=== PATIENT | female | born 1935 | race Caucasian/White ===

== ENCOUNTER 2019-12-13 11:36 | Emergency (ER) | payer MEDICARE, OTHER, SELFPAY ==
--- NOTE | ~2019-12-13 | XR_ITS ---
EXAMINATION: XR chest 2V DATE: 12/13/2019 13:03 INDICATION: Chest pain and shortness of breath TECHNIQUE: frontal and lateral views of the chest were obtained. COMPARISON: None FINDINGS: The lungs are clear with no focal airspace opacities, pulmonary edema, pleural effusion or pneumothor ax. The cardiomediastinal silhouette is normal. Moderate S-shaped thoracolumbar scoliosis with modera te to severe spondylosis. Advanced right glenohumeral osteoarthritis. IMPRESSION: 1. No acute cardiopulmonary disease. Reviewed, dictated and finalized at location B.
[2019-12-13 11:36] VITALS: BP 142/77; PULSE 103; RESP 26; TEMP 37.1; O2SAT 94
--- NOTE | 2019-12-13 11:54 | ECG_ITS ---
Measurements Intervals [place] Rate: 103 P: [place]: 0 QRS: -2 QRSD: 100 T: 96 QT: 315 QTc: 414 Interpretive Statements ATRIAL FIBRILLATION WITH RAPID VENTRICULAR RESPONSE LEFT VENTRICULAR HYPERTROPHY WITH ST-T CHANGE ANTEROSEPTAL INFARCT, AGE INDETERMINATE CONSIDER INFERIOR INFARCT, AGE INDETERMINATE ABNORMAL ECG Electronically Signed On 12-13-2019 12:26:31 CDT by Brando Mahmood D.O.
--- NOTE | 2019-12-13 11:57 | ED.CHESTPAIN ---
HPI - Chest Pain General Chief Complaint: Chest Pain Stated Complaint: CP Time Seen by Provider: 12/13/19 11:56 History of Present Illness HPI narrative: Continuous left sided chest pain for the past 2 days. Worse with arm movement. Mild at rest. No associated symptoms. She has never had this pain before. Related Data Allergies Allergy/AdvReac Type Severity Reaction Status Date / Time Sulfa (Sulfonamide Allergy Unknown Verified 11/02/18 12:58 Antibiotics) Review of Systems Review of Systems: All systems reviewed & are unremarkable except as noted in HPI and below Constitutional: Constitutional: Denies fever(s) Cardiovascular: Cardiovascular: Reports chest pain, Denies rapid heart rate and Denies radiating jaw, neck or arm pain Respiratory: Respiratory: Denies cough and Denies dyspnea Gastrointestinal: Gastrointestinal: Denies abdominal pain and Denies nausea Musculoskeletal: Musculoskeletal: Reports back pain Neurologic: Denies confusion, Denies dizziness and Denies weakness [facility] Family History Family History Other Family history of cardiovascular disease Social History Social History Smoking status: Never smoker Alcohol intake: never Exam Const: General: no acute distress and alert Orientation/consciousness: patient oriented x3 HENMT: Head: normal to inspection Neck: Neck: normal visual inspection Chest: Chest palpation & inspection: tenderness pectoral muscle on the left Resp: Effort & Inspection: normal respiratory effort Auscultation: clear to auscultation bilaterally, no rales, no rhonchi and no wheezes Cardio: Jugular venous distension: no JVD Rate: regular rate Rhythm: regular rhythm Heart sounds: Murmur heart sound present GI: Inspection: non-distended GI Palp: Yes Soft to palpation and No Tenderness to palpation present (GI) Skin: General skin exam: normal color Neuro: General: patient oriented x3, moves all extremities and no focal motor deficits Speech: normal speech Extrem: General: no edema Psych: Appearance: well kempt Affect: normal affect Course Vital Signs Vital signs: Vital Signs Temperature 37.1 C 12/13/19 11:36 Pulse Rate 103 H 12/13/19 11:36 Respiratory Rate 26 H 12/13/19 11:36 Blood Pressure 142/77 H 12/13/19 11:36 Pulse Oximetry 94 12/13/19 11:36 Temperature 36.8 C 12/13/19 15:26 Pulse Rate 86 12/13/19 15:26 Respiratory Rate 16 12/13/19 15:26 Blood Pressure 146/104 H 12/13/19 15:26 Pulse Oximetry 96 12/13/19 15:26 MDM - Chest Pain MDM Narrative Medical decision making narrative: History and exam suggest musculoskeletal pain. EKG shows no acute changes. Troponin negative. Medical Records Data Attestation: I reviewed the patient's medical records. Lab Data Attestation: I reviewed the patient's lab results. Result diagrams: 12/13/19 12:34 12/13/19 12:34 Labs: Lab Results 12/13/19 12/13/19 12/13/19 Range/Units 12:34 12:34 12:34 WBC 10.2 H (4.5-10.0) K/mm3 RBC 4.38 (4.2-5.4) M/mm3 Hgb 13.4 (12.0-15.0) g/dL Hct 39.4 (37.0-47.0) % MCV 90.0 (80-100) fl MCH 30.6 (26-34) pg MCHC 34.0 (32-36) g/dl RDW 13.8 (11.5-14.5) % Plt Count 215 (150-375) k/mm3 MPV 9.6 (7.4-10.4) fl Immature Gran % (Auto) 0.6 H (0-0.5) % Neut % (Auto) 78.6 H (45.5-73.1) % Lymph % (Auto) 13.5 L (18.3-44.2) % [place] % (Auto) 6.1 (2.6-8.5) % Eos % (Auto) 0.9 (0-4.4) % Baso % (Auto) 0.3 (0.2-1.2) % Lymph # (Auto) 1.38 (0.9-3.2) K/mm3 [place] # (Auto) 0.6 (0.1-0.6) K/mm3 Eos # (Auto) 0.1 (0-0.3) K/mm3 Baso # (Auto) 0.0 (0.0-0.1) K/mm3 Abs Immat Gran (auto) 0.06 H (0.00-0.031) K/mm3 Absolute Neuts (auto) 8.0 H (1.3-6.7) K/mm3 Absolute Nucleated RBC 0.0 (0.0-0.012) K/mm3 Nucleated RBC % 0.0
[2019-12-13 12:41] LABS: Basophils Percent Auto 0.3 % (0.2-1.2); Eosinophils Absolute Auto 0.1 K/mm3 (0-0.3); Eosinophils Percent Auto 0.9 % (0-4.4); Hematocrit 39.4 % (37.0-47.0); Hemoglobin 13.4 g/dL (12.0-15.0); Immature Granulocyte Absolute 0.06 K/mm3 (0.00-0.031); Immature Granulocyte Percent A 0.6 % (0-0.5); Lymphocytes Absolute Auto 1.38 K/mm3 (0.9-3.2); Lymphocytes Percent Auto 13.5 % (18.3-44.2); Mean Corpuscular Hemoglobin 30.6 pg (26-34); Mean Platelet Volume 9.6 fl (7.4-10.4); Monocytes Absolute Auto 0.6 K/mm3 (0.1-0.6); Monocytes Percent Auto 6.1 % (2.6-8.5); Neutrophils Percent Auto 78.6 % (45.5-73.1); Platelet Count Result 215 k/mm3 (150-375); Red Blood Count 4.38 M/mm3 (4.2-5.4); Red Cell Distribution Width 13.8 % (11.5-14.5); White Blood Count 10.2 K/mm3 (4.5-10.0)
[2019-12-13 12:49] VITALS: BP 148/75; PULSE 84; RESP 19; O2SAT 94
[2019-12-13 12:52] LABS: Anion Gap 10 mmol/L (8-16); Blood Urea Nitrogen 12 mg/dL (7-17); Carbon Dioxide 28 mmol/L (22-30); Chloride 93 mmol/L (98-107); Estimated Glomerular Filt Rate > 60; Glucose 245 mg/dL (65-105); Sodium 131 mmol/L (137-145)
[2019-12-13 12:54] LABS: INR 1.6; Prothrombin Time 18.3 Seconds (11.1-14.7)
[2019-12-13 12:55] LABS: Partial Thromboplastin Time 39.4 SECONDS (22.3-36.8)
[2019-12-13 13:04] LABS: Troponin I < 0.012 ng/mL (0.000-0.034)
[2019-12-13 13:52] VITALS: BP 161/83; PULSE 95; RESP 24; O2SAT 96
--- NOTE | 2019-12-13 14:06 | PC.NURSE ---
report called to [facility]. Spoke with LITTLE rajan
[2019-12-13 15:26] VITALS: BP 146/104; PULSE 86; RESP 16; TEMP 36.8; O2SAT 96
== END 2019-12-13 15:27 ==
PROVIDERS: Emergency Medicine; Emergency Provider Emergency Medicine
DX: R07.89 Other chest pain (principal); I48.91 Unspecified atrial fibrillation; I51.7 Cardiomegaly; R94.31 Abnormal electrocardiogram [ECG] [EKG]
CPT/HCPCS: 36415; 71046; 80048; 84484; 85025; 85610; 85730; 93005; 99284